=== PATIENT | male | born 1945 | race Caucasian/White ===

== ENCOUNTER 2019-02-12 16:34 | Inpatient (IN) | payer OTHER ==
[2019-02-12] MEDS ORDERED: MAG HYDROX/AL HYDROX/SIMETH 30 ML UDCUP PO ONE (16:58)
[2019-02-12] MEDS ORDERED: HYOSCYAMINE SULFATE 0.125 MG TAB PO ONE (16:58)
[2019-02-12] MEDS ORDERED: LIDOCAINE 2% VISCOUS 15 ML UDCUP PO ONE (16:58)
[2019-02-12] MEDS ORDERED: NS 1,000 ML IV ONE (16:58)
[2019-02-12] MEDS ORDERED: ASPIRIN 81 MG CHEWABLE TAB PO ONE (17:45)
[2019-02-12] MEDS ORDERED: METOPROLOL TARTRATE 25 MG TAB PO ONE (17:46)
[2019-02-12] MEDS ORDERED: ENOXAPARIN 80 MG/0.8 ML SYR SC ONE (17:46)
[2019-02-12] MEDS ORDERED: TEMAZEPAM 15 MG CAP PO PRN (17:59)
[2019-02-12] MEDS ORDERED: NITROGLYCERIN 0.4 MG BTL SL PRN (17:59)
[2019-02-12] MEDS ORDERED: ACETAMINOPHEN 325 MG TAB PO PRN (17:59)
[2019-02-12] MEDS ORDERED: ONDANSETRON 4 MG/2 ML VIAL IVP PRN (18:07)
[2019-02-12] MEDS ORDERED: ONDANSETRON DISINTEGRATING 4 MG TAB PO PRN (18:07)
[2019-02-12] MEDS: METOPROLOL TARTRATE 25 MG TAB PO SCH (19:17)
[2019-02-12] MEDS: ATORVASTATIN CALCIUM 40 MG TAB PO SCH (19:17)
[2019-02-12] MEDS: ISOSORBIDE MONONITRATE 30 MG TAB.SR PO SCH (20:42)
[2019-02-13] MEDS ORDERED: FAMOTIDINE 20 MG TAB PO ONE ×2 (06:00→09:15)
[2019-02-13] MEDS ORDERED: diphenhydrAMINE 25 MG CAP PO ONE ×2 (06:00→09:15)
[2019-02-13] MEDS ORDERED: DIAZEPAM 5 MG TAB PO ONE ×2 (06:00→09:15)
[2019-02-13] MEDS ORDERED: NS 1,000 ML IV ONE (06:00)
[2019-02-13] MEDS ORDERED: ASPIRIN EC 325 MG TAB PO ONE ×3 (06:00→16:22)
[2019-02-13] MEDS ORDERED: ASPIRIN 325 MG TAB PO SCH (09:00)
[2019-02-13] MEDS ORDERED: fentaNYL 100 MCG/2 ML INJ ONE (09:07)
[2019-02-13] MEDS ORDERED: LIDOCAINE 1% 300 MG/30 ML SDV ONE (09:07)
[2019-02-13] MEDS ORDERED: MIDAZOLAM 2 MG/2 ML VIAL ONE (09:07)
[2019-02-13] MEDS ORDERED: IOPAMIDOL (ISOVUE-370) 150 ML BTL IV ONE ×4 (09:07→11:14)
[2019-02-13] MEDS ORDERED: BIVALIRUDIN 250 MG/5 ML VIAL IV ONE (10:15)
[2019-02-13] MEDS ORDERED: NITROGLYCERIN 1,500 MCG/15 ML VIAL MISC ONE (10:48)
[2019-02-13] MEDS ORDERED: TICAGRELOR 90 MG TAB ONE (11:19)
[2019-02-13] MEDS: ISOSORBIDE MONONITRATE 30 MG TAB.SR PO SCH (13:18)
[2019-02-13] MEDS: ATORVASTATIN CALCIUM 40 MG TAB PO SCH (13:46)
[2019-02-13] MEDS: PANTOPRAZOLE SODIUM 40 MG TAB PO SCH (13:46)
[2019-02-13] MEDS: METOPROLOL TARTRATE 25 MG TAB PO SCH ×2 (13:46→21:15)
[2019-02-13] MEDS ORDERED: ATROPINE SULFATE 1 MG/10 ML SYR IVP PRN (16:22)
[2019-02-13] MEDS ORDERED: TICAGRELOR 90 MG TAB PO ONE (16:22)
[2019-02-14] MEDS: ATORVASTATIN CALCIUM 40 MG TAB PO SCH (08:42)
[2019-02-14] MEDS: METOPROLOL TARTRATE 25 MG TAB PO SCH (08:43)
[2019-02-14] MEDS: PANTOPRAZOLE SODIUM 40 MG TAB PO SCH (08:43)
[2019-02-14] MEDS ORDERED: ASPIRIN EC 81 MG TAB PO SCH (09:00)
[2019-02-14] MEDS ORDERED: TICAGRELOR 90 MG TAB PO SCH (09:00)
== END 2019-02-14 14:17 | disposition home or self-care (01) | DRG 247 ==
DX: I21.4 Non-ST elevation (NSTEMI) myocardial infarction (principal); I25.110 Atherosclerotic heart disease of native coronary artery with unstable angina pectoris; I10 Essential (primary) hypertension; E78.5 Hyperlipidemia, unspecified; K21.9 Gastro-esophageal reflux disease without esophagitis